=== PATIENT | male | born 1965 | race Caucasian/White ===

== ENCOUNTER 2017-08-10 18:25 | Inpatient (IN) | payer BC ==
[~2017-08-10] VITALS: Ht 180.3 cm; Wt 90.7 kg
--- NOTE | 2017-08-10 18:40 | NUR ---
BIB FRIEND CHOKING ON CHICKEN MEAT. OBSERVED PT EXPEL CHICKEN INTO TRASHCAN. STATES HIS THROAT FEELS TIGHT IF SOMETHING REMAINS LODGED. AAO4.
[2017-08-10] MEDS ORDERED: GLUCAGON,HUMAN RECOMBINANT 1 MG/VIAL VIAL ONE (18:56)
[2017-08-10] MEDS ORDERED: WATER FOR INJECTION,STERILE 10 ML ONE (18:57)
[2017-08-10] MEDS ORDERED: GLUCAGON,HUMAN RECOMBINANT 1 MG/VIAL VIAL IV ONE (19:00)
--- NOTE | 2017-08-10 19:15 | NUR ---
PT REPORT RECIEVED FROM YESSI SANTANA, PT C/O HAVING FOOD STUCK IN HIS THROAT, PT DENIES SOB OR DIFFICULTY BREATHING AT THIS TIME, PT ON MONITOR, MD MADE AWARE WILL CONTINUE TO MONITOR.
[2017-08-10 19:36] LABS: BASOPHILS % (AUTO) 0.3 % (0.0-2.0); EOSINOPHILS # (AUTO) 0.1 /CMM (0.0-0.7); EOSINOPHILS % (AUTO) 1.9 % (0.0-6.0); HEMATOCRIT 45 % (39-51); HEMOGLOBIN 15.1 g/dL (13.5-17.5); LYMPHOCYTES # (AUTO) 1.2 /CMM (0.8-4.8); LYMPHOCYTES % (AUTO) 21.5 % (20.0-44.0); MEAN CORPUSCULAR HEMOGLOBIN 28 PG (26.0-33.0); MEAN CORPUSCULAR HGB CONC 34 g/dl (31.0-36.0); MEAN CORPUSCULAR VOLUME 83 fL (80-96); MONOCYTES # (AUTO) 0.4 /CMM (0.1-1.30); MONOCYTES % (AUTO) 7.5 % (2.0-12.0); NEUTROPHILS # (AUTO) 3.8 /CMM (1.8-8.9); NEUTROPHILS % (AUTO) 68.8 % (43.0-81.0); PLATELET COUNT (AUTO) 212 /CMM (150-450); RDW COEFFICIENT OF VARIATION 13.7 (11.5-15.0); RED BLOOD CELL COUNT(AUTO) 5.38 MIL/uL (4.5-6.0); WHITE BLOOD COUNT (AUTO) 5.6 K/uL (4.3-11.0)
[2017-08-10 19:48] LABS: CALCIUM, SERUM 9.3 mg/dL (8.5-10.1); CREATININE 1.1 mg/dL (0.6-1.3); POTASSIUM 3.7 mmol/L (3.5-5.1)
[2017-08-10] MEDS ORDERED: hydrALAZINE HCL IV 20 MG VIAL ONE (19:53)
[2017-08-10] MEDS ORDERED: hydrALAZINE HCL IV 20 MG VIAL IV ONE (20:00)
[2017-08-10 20:01] LABS: INR 0.95 (0.87-1.13); PROTHROMBIN TIME 9.9 SECS (9.5-12.7)
[2017-08-10] MEDS ORDERED: ANESTHESIA TRAY IN PYXIS 1 EA TRAY MC ONE (20:17)
--- NOTE | 2017-08-10 20:20 | NUR ---
PT TO OR FOR EGD.
--- NOTE | 2017-08-10 21:10 | NUR ---
MS/RN NOTES PT RECEIVED FROM OR. AWAKE, A/OX4. ON ROOM AIR, NO SOB OR SIGNS OF DISTRESS. BREATHING EVEN AND UNLABORED. STEADY UPON AMBULATION. IV TO LAC PATENT AND INTACT. ORIENTED PT TO ROOM AND CALL LIGHT. FAMILY AT BEDSIDE. BED IN LOW/LOCKED POSITION WITH CALL LIGHT IN REACH. SIDE RAILS UPX2. WILL CONTINUE TO MONITOR Addendum: 08/10/17 at 2120 by CHINO LOWERY RN S/P TATI
[2017-08-10 21:15] VITALS: BP 175/105
[2017-08-10 21:30] VITALS: BP 164/101
[2017-08-10 21:45] VITALS: BP 172/103
[2017-08-10 22:00] VITALS: BP 184/114
--- NOTE | 2017-08-10 22:05 | NUR ---
RN NOTES NOTIFIED DR. ROSALES OF PT'S ELEVATED BP. LATEST= 184/114, HR=83 MADE AWARE THAT BP HAS BEEN ELEVATED WITH SBP'S IN 170'S HOWEVER PT IS INSISTING TO LEAVE DESPITE EDUCATION ON RISKS OF LEAVING AMA WITHOUT BP BEING STABLE. INFORMED PT THAT WE CAN CALL MD TO OBTAIN ORDER FOR MEDS TO LOWER BP. PT ALSO REFUSING BP MEDS SINCE HE DOESNT TAKE ANY AT HOME. PT VERBALIZES UNDERSTANDING OF RISKS BUT STILL ADAMANT ABOUT LEAVING WITHIN THE NEXT 10MINS. DR. ROSALES MADE AWARE OF PT WANTING TO LEAVE AMA.
--- NOTE | 2017-08-10 22:15 | NUR ---
RN NOTES PT ACCOMPANIED BY SON, LEFT AMA. PAPERWORK SIGNED AND INSTRUMENT SETTER AND DR. ROSALES AWARE. IV AND ID BAND REMOVED. ENCOURAGED PT TO GO TO NEAREST ER IF PT FEELS ANY SYMPTOMS SUCH HEADACHE, DIZZINESS, NAUSEA, VOMITING, ETC. PT VERBALIZED UNDERSTANDING.
== END 2017-08-10 22:10 | disposition left against medical advice (07) | DRG 395 ==
LOC: ER 18:30 → MED 20:17
PROVIDERS: ADMIT Surgery; ATTEND Surgery
PROC: 0DC58ZZ Extirpation of Matter from Esophagus, Via Natural or Artificial Opening Endoscopic (ICD-10-PCS; principal; 2017-08-10 20:15)
DX: T18.128A Food in esophagus causing other injury, initial encounter (principal); R13.10 Dysphagia, unspecified; K22.2 Esophageal obstruction; K21.9 Gastro-esophageal reflux disease without esophagitis; X58.XXXA Exposure to other specified factors, initial encounter; Y92.9 Unspecified place or not applicable
CPT/HCPCS: 36415; 80048-TC; 85025-TC; 85730-TC; A4606; J0360; J1610; Z7610